=== PATIENT | male | born 1970 | race Caucasian/White ===

== ENCOUNTER 2024-10-20 11:37 | Emergency (ER) | payer SELFPAY ==
[2024-10-20 11:42] VITALS: BP 145/88; PULSE 89; TEMP 36.4; O2SAT 99; BMI 29.0
--- OUTSIDE RECORDS SUMMARY | 2024-10-20 11:43 | XMS_ITS | Encounter Summary ---
Author Organization [facility] Address [address] [facility] [place] [address] Care Team Providers Care Warehouse Manager Name Role Phone Shira Hartman KNIFE GRINDER Primary Care Provider [phone] Encounter Details Date Type Department Care Team (Late st Contact Info) Description 07/16/2005 Outpatient Historical [facility] Narinder Hackett MD [address] [facility] [address] [place] [id number] Social History Tobacco Use Types Packs/Day Years Used Date Smoking Tobacco: Never Assessed Sex and Gender Information Value Date Recorded Sex Assigned at Not on file 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 The lumbar spine is normal in sagittal alignment. The posterior elements appear intact and normal in their relationships. The paraspinal tissues are unremarkable. L1-2: Normal. L2-3: Normal. L3-4: Normal. L4-5: Moderate broad-based bulge of the disc is present. Focal disc protrusion is present to a mild degree in the right subarticular zone, causing moderate lateral recess stenosis. The neural foramina are widely patent. Mild narrowing of the left lateral recess is present. L5-S1: Mild disc protrusion is probably present in the left paracentral zone causing mild impingement upon the left S1 nerve root. Bony structures are unremarkable. IMPRESSION: 1. Diffuse disc bulge and probable mild broad-based disc protrusion on the right at L4-5 narrows the right lateral recess and would be expected to affect the right L5 nerve root. 2. Possible left-sided disc protrusion at L5-S1 appears to mildly displace the left S1 nerve root. This is not well visualized however, and prior to any anticipated surgical procedure, this could be confirmed with MRI or CT myelography if indicated. ekp / Dictated By: Pravin Muñiz M.D. Electronically Signed By: Pravin Muñiz M.D. Date Signed: 07/17/05 Procedure Note Provider, Historical - 03/02/2009 CT OF THE LUMBAR SPINE - 07/16/2005 REASON FOR STUDY: Back pain and left-sided leg pain. The lumbar spine is normal in sagittal alignment. The posterior elementsappear intact and normal in their relationships. The paraspinal tissues are unremarkable. L1-2: Normal. L2-3: Normal. L3-4: Normal. L4-5: Moderate broad-based bulge of the disc is present. Focal disc protrusionis present to a mild degree in the right subarticular zone, causing moderate lateral recess stenosis.The neural foramina are widely patent. Mild narrowing of the left lateral recess is present. L5-S1: Mild disc protrusion is probably present in the left paracentral zonecausing mild impingement upon the left S1 nerve root. Bony structures are unremarkable. IMPRESSION: 1. Diffuse disc bulge and probable mild broad-based disc protrusion onthe right at L4-5 narrows the right lateral recess and would be expected to affect the right L5 nerveroot. 2. Possible left-sided disc protrusion at L5-S1 appears to mildlydisplace the left S1 nerve root. This is not well visualized however, and prior to any anticipated surgicalprocedure, this could be confirmed with MRI or CT myelography if indicated. ekp / Dictated By: Pravin Muñiz M.D. Electronically Signed By: Pravin Muñiz M.D. Date Signed: 07/17/05 us Narinder Hackett MD CT ORDERABLES Final Resul t documented in this encounter Visit Diagnoses Not on filedocumented in this encounter Care Teams Warehouse Manager Relationship Specialty Start Date End Date Shira Hartman FNP [facility] [place] [address] PCP - General NURSE PRACTITIONER 09/20/17 documented as of this encounter
--- OUTSIDE RECORDS SUMMARY | 2024-10-20 11:43 | XMS_ITS | Encounter Summary ---
Author Organization [facility] Address [address] [place] [address] Care Team Providers Care Horticulture Superintendent Name Role Phone Shira Hartman Primary Care Provider [phone] Encounter Details Date Type Department Care Team (Latest Contact Info) Description 07/03/2007 Outpatient Historical [facility] [address] 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
--- OUTSIDE RECORDS SUMMARY | 2024-10-20 11:43 | XMS_ITS | Clinical Summary ---
Author Organization [facility] Address [address] [facility] [address] [place] [address] Phone Care Team Providers Care Systems Test Technician Name Role Phone Shira Hartman Nivia MODEL AND MOLD MAKER Primary Care Provider [phone] Allergies No known active allergies Medications No known medications Social History Tobacco Use Types Packs/Day Years Used Date Smoking Tobacco: Every Day Cigarettes Smokeless Tobacco: Current Chew Alcohol Use Standard Drinks/Week Comments No 0 (1 standard drink = 0.6 oz pur e alcohol) Sex and Gender Information Value Date Recorded Sex Assigned at Not on file 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 Gender Identity Not on file Sexual Orientation Not on file Last Filed Vital Signs Vital Sign Reading Time Taken Comments Blood Pressure 117/78 09/20/2017 3:08 PM CDT Pulse - - Temperature 38.1 C (100.5 F) 09/20/2017 3:08 PM CDT Respiratory Rate 20 09/20/2017 3:08 PM CDT Oxygen Saturation 97% 09/20/2017 3:08 PM CDT Inhaled Oxygen Concentration - - Weight 92.4 kg (203 lb 9.6 oz) 09/20/2017 10:40 AM CDT Height 182.9 cm (6') 09/20/2017 10:40 AM CDT Body Mass Index 27.61 09/20/2017 10:40 AM CDT Plan of Treatment Health Maintenance Due Date Last Done Comments DTAP/TDAP/TD VACCINES (1 - Tdap) 1989 HEPATITIS B VACCINES (1 of 3 - 19+ 3-dose series) 03/15 COLORECTAL SCREENING 2015 Colorectal Cancer Screening 2015 FIT-DNA Q 3 years 2015 FIT/FOBT Q 1 year 2015 Flex Sig/CT Colonography Q 5 years 2015 ZOSTER VACCINE (1 of 2) 2020 INFLUENZA VACCINE (#1) 2024 Care Teams Systems Test Technician Relationship Specialty Start Date End Date Shira Hartman, SMOOTH [address] [place] [address] PCP - General NURSE PRACTITIONER 09/20/17
--- OUTSIDE RECORDS SUMMARY | 2024-10-20 11:43 | XMS_ITS | Encounter Summary ---
Author Organization [facility] Address [address] [place] [address] Care Team Providers Care Outsole Molder Name Role Phone Shira Hartman Primary Care Provider [phone] Encounter Details Date Type Department Care Team (Latest Contact Info) Description 07/13/2005 Outpatient Historical [facility] [place] [facility] Medicine [address] [place] [address] Narinder Hackett MD [address] [facility] [address] [place] [id number] Unspecified Backache (Primary Dx); Sciatica Social History Tobacco Use Types Packs/Day Years Used Date Smoking Tobacco: Never Assessed Sex and Gender Information Value Date Recorded Sex Assigned at Not on file Legal Sex Male 4:23 AM CLIENT DIRECTOR Gender Identity Not on file Sexual Orientation Not on file documented as of this encounter Plan of Treatment Not on file documented as of this encounter Visit Diagnoses Diagnosis Backache, unspecified- Primary Sciatica documented in this encounter Care Teams Outsole Molder Relationship Specialty Start Date End Date Shira Hartman FNP [address] [place], [place] [address] PCP - General NURSE PRACTITIONER 09/20/17 documented as of this encounter
--- NOTE | 2024-10-20 12:40 | CTR_ITS ---
PROCEDURE INFORMATION: Exam: CT Thoracic Spine Without Contrast Exam date and time: 10/20/2024 12:58 PM Age: 54 years old Clinical indication: Injury or trauma; Blunt trauma (contusions or hematomas); Injury details: Tree limb hit PT while in the [place] Lac to left orbit. Positive loss of consciousness unknown for how long. PT drove himself out of the [place] but he does not remember doing this. TECHNIQUE: Imaging protocol: Computed tomography of the thoracic spine without contrast. Radiation optimization: All CT scans at this facility use at least one of these dose optimization techniques: automated exposure control; mA and/or kV adjustment per patient size (includes targeted exams where dose is matched to clinical indication); or iterative reconstruction. COMPARISON: No prior thoracic spine imaging for comparison. RADIATION DOSE METRICS: Total DLP (mGy-cm): 944.71 FINDINGS: Thoracic vertebral body heights are preserved. No acute fracture of the thoracic spine is identified. There is no pathologic widening of disc spaces or interspinous spaces. Very minor chronic degenerative changes are present at multiple levels. Incidental note of granulomatous calcifications at the right hilum and in the right lower lobe CT/CT thoracic spin wo con* [id number] IMPRESSION: No acute thoracic spine fracture detected.
--- NOTE | 2024-10-20 12:40 | CTR_ITS ---
PROCEDURE INFORMATION: Exam: CT Head Without Contrast Exam date and time: 10/20/2024 12:52 PM Age: 54 years old Clinical indication: Injury or trauma; Blunt trauma (contusions or hematomas); Injury details: Tree limb hit PT while in [place] Lac to left orbit. Positive loc unknown for how long. PT drove himself [place] of [place] but he does not remember doing this. ; Additional info: Injury/amnesia TECHNIQUE: Imaging protocol: Computed tomography of the head without contrast. Radiation optimization: All CT scans at this facility use at least one of these dose optimization techniques: automated exposure control; mA and/or kV adjustment per patient size (includes targeted exams where dose is matched to clinical indication); or iterative reconstruction. COMPARISON: CT cervical spin wo con* [id number] 10/20/2024 12:52 PM RADIATION DOSE METRICS: Total DLP (mGy-cm): 212 FINDINGS: Brain: Normal. No hemorrhage. Unremarkable white matter. No mass effect. Cerebral ventricles: No ventriculomegaly. Paranasal sinuses: The right maxillary sinus is hypoplastic and shows partial opacification with a mucous retention cyst. The remaining paranasal sinuses appear normal. Mastoid air cells: Visualized mastoid air cells are well aerated. Bones: Unremarkable. No acute fracture. Soft tissues: Unremarkable. CT/CT head wo con* [id number] IMPRESSION: 1. No sequela of trauma is identified. There is no acute intracranial pathology. 2. 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
--- NOTE | 2024-10-20 12:40 | CTR_ITS ---
PROCEDURE INFORMATION: Exam: CT Cervical Spine Without Contrast Exam date and time: 10/20/2024 12:52 PM Age: 54 years old Clinical indication: Injury or trauma; Blunt trauma; Injury details: Tree limb hit PT while in [place] Lac to left orbit. Positive loc unknown for how long. PT drove himself [place] but he does not remember doing this. TECHNIQUE: Imaging protocol: Computed tomography of the cervical spine without contrast. Radiation optimization: All CT scans at this facility use at least one of these dose optimization techniques: automated exposure control; mA and/or kV adjustment per patient size (includes targeted exams where dose is matched to clinical indication); or iterative reconstruction. COMPARISON: CT head wo con* [id number] 10/20/2024 12:52 PM RADIATION DOSE METRICS: Total DLP (mGy-cm): 212 FINDINGS: Bones: The spine is imaged from upper clivus through T1. AP alignment and curvature are normal.There is no fracture, lytic, or blastic lesion. Discs/Spinal canal/Neural foramina: A C3-C4 left-sided uncovertebral bone spur is demonstrated causing foraminal narrowing and potential left C4 impingement. A disc osteophyte complex is present at C5-C6 along with uncovertebral spurring. There is potential right C6 ventral rootlet impingement at the root exit zone and foramina root entry zone. A C6-C7 disc osteophyte complex is present with uncovertebral spurring causing bilateral moderate foraminal narrowing. No definite root compromise is apparent. The remaining cervical disc spaces show no significant degenerative change. Lungs: Lung apices are normal. Soft tissues: No prevertebral soft tissue swelling or hematoma is present. No cervical soft tissue masses are apparent. Thyroid is normal. CT/CT cervical spin wo con* [id number] IMPRESSION: 1. No sequela of acute trauma is identified. 2. Potentially significant cervical spondylosis as detailed above possibly compromising the left C4, bilateral C6, and possibly bilateral C7 nerve roots. Clinical correlation is needed.
--- NOTE | 2024-10-20 12:42 | ED_ITS ---
HPI - Head Injury 2 General: Chief complaint: Head Injury Stated complaint: Facial lac, hit by tree limb Time Seen by Provider: 10/20/24 12:09 Source: patient and family Mode of arrival: wheelchair Limitations: no limitations History of Present Illness: Patient is a nice 54-year-old male who presents to ED today for medical evaluation. 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 He states he then fell forward and struck his left face on something sustaining a laceration to his left eyebrow. There was no LOC although he states the details of the injury are fuzzy. Friend that was a witness states that he does not remember a lot of the incident. He is not complaining of a headache or neck pain. He does have some upper back pain/abrasions where the tree branch struck him. Complaint: head injury Onset (ago): hour(s) Mechanism of Injury: work related injury Place: work and outdoors Loss of Consciousness: no Location of injury: face and other (back) Severity: moderate Radiation: none Other Injuries: laceration and other (back) Associated symptoms: Reports amnesia; Deny neck pain or syncope Related Data Allergies Allergy/AdvReac Type Severity Reaction Status Date / Time No Known Allergies Allergy Verified 10/20/24 11:50 Review of Systems 2 Eyes: Denies: change in vision, blurry vision, photophobia, eye discharge, floaters or seeing flashes ENMT: Denies: throat pain, odynophagia, ear or mastoid pain, ear discharge, nasal discharge, epistaxis or sinus pain Card: Denies: chest pain, palpitations, lightheadedness, syncope or pre- syncope Resp: Denies: dyspnea or pain on inspiration GI: Denies: abdominal pain : Denies: flank pain or hematuria Musc: Reports: back pain; Denies: neck pain, extremity pain or joint pain Skin/Breast: Reports: other (L eyebrow laceration) Neuro: Denies: headache(s), numbness in extremities, weakness in extremities, sensory changes or dizziness Physical Exam 2 Const: COMMON NORMALS: no acute distress, average body habitus, patient oriented x3, no limitations, healthy appearing, alert and well nourished G ENERAL APPEARANCE: cooperative ORIENTATION/CONSCIOUSNESS: Yes awake, Yes oriented to person, Yes oriented to place and Yes oriented to time HENMT: COMMON NORMALS: normocephalic, atraumatic, TM's normal bilaterally and Normal external nose present HEAD & SCALP: normal to inspection, normocephalic and atraumatic; no Alvarez's sign, no hematoma and no raccoon eyes FACE & SINUS: normal facial exam (apart from L eyebrow laceration) FACE & SINUS IMAGES: 1. laceration; full EOMs NOSE: Normal external nose present TYMPANIC MEMBRANE: TM's normal bilaterally MOUTH: other (no intraoral injuries noted) Eye: COMMON NORMALS: Equal, round and reactive pupils present and EOMs intact bilaterally GENERAL EYE: appearance normal, both eyes and all related structures and normal light reflex PUPIL: Yes Equal, round and reactive pupils present DIRECT OPHTHALMOSCOPY: Yes normal light reflex Neck/C-Spine: COMMON NORMALS: full ROM GENERAL: Yes normal visual inspection CERVICAL SPINE: Yes cervical ROM normal, No pain with cervical ROM, No Cervical spine tenderness, No step off deformity and No Paracervical muscle tenderness Chest: COMMONS NORMALS: normal inspection of the chest and normal palpation of entire chest wall Resp: COMMON NORMALS: normal respiratory effort and clear to auscultation bilaterally AUSCULTATION: clear to auscultation bilaterally Cardio: COMMON NORMALS: regular rate and regular rhythm RATE: regular rate RHYTHM: regular rhythm GI: COMMON NORMALS: Normal to inspection, nondistended, normoactive bowel sounds present, Soft to palpation, non-tender, No hepatosplenomegaly present and no masses INSPECTION: Yes normal to inspection and No abdominal wall ecchymosis AUSCULTATION: Yes normoactive bowel sounds PALPATION: Yes Soft to palpation and Yes No hepatosplenomegaly present Back/Pelvis: COMMON NORMALS: thoraco-lumbar ROM normal and straight leg raise negative bilaterally THORACIC SPINE/UPPER BACK: Yes thoracic ROM normal, Yes pain with ROM, Yes thoracic spinal tenderness, Yes paraspinal muscle tenderness and Yes other soft tissue findings (large abrasion across upper back) LUMBAR SPINE/LOWER BACK: Yes normal to inspection and No lumbar spinal tenderness P JEANIE: Yes buttocks normal SACRUM: no tenderness COCCYX: no tenderness Extremity: COMMON NORMALS: normal to inspection and full ROM GENERAL: Yes normal exam except as noted Neuro: EDI COMA SCALE: document GCS findings [place] coma scale eye opening: Spontaneous Edi coma scale verbal response: Orientated Edi coma scale motor response: Obey commands [place] coma scale total score: 15 COMMON NORMALS: patient oriented x3, CN's II-XII intact bilaterally, moves all extremities, no focal motor deficits, no sensory deficits noted and gait normal SENSORIUM/ORIENTATION: Yes alert, Yes oriented to person, Yes oriented to place and Yes oriented to time SPEECH: speech normal GAIT: Yes Normal gait present Skin: COMMON NORMALS: no rashes or lesions noted GENERAL SKIN EXAM: no rashes or lesions noted TRAUMA: abrasion and laceration Procedures Laceration Laceration 1: Site: face (L eyebrow) Side (If applicable): left Size (cm): 2.0 Description: linear Local Anesthetic: lidocaine 1% and with epi Amount of anesthesia used (mL): 2.0 Pre-repair: wound explored and irrigated extensively Skin layer closed with: nylon Size (cm): 5-0 Number of sutures: 5 Technique: simple, interrupted Subcutaneous layer closed with: vicryl Size: 4-0 Number of sutures: 3 Technique: simple, interrupted Course 2 Vital Signs: Vital signs: Vital Signs Temperature 97.6 F 10/20/24 11:42 Pulse Rate 85 10/20/24 13:18 Blood Pressure 145/88 10/20/24 11:42 Pulse Oximetry 99 10/20/24 13:18 Oxygen Delivery Me thod Room Air 10/20/24 13:18 MDM - Head Injury Medcial Decision Making CT head, cervical spine, thoracic spine obtained and unremarkable. Tetanus will be updated. Facial laceration was copiously irrigated and repaired as documented. Wound care/infection precautions discussed. Medical Records I reviewed the patient's medical records. Lab Data Radiology Impressions Cervical Spine CT 10/20/24 12:40 IMPRESSION: 1. No sequela of acute trauma is identified. 2. Potentially significant cervical spondylosis as detailed above possibly compromising the left C4, bilateral C6, and possibly bilateral C7 nerve roots. Clinical correlation is needed. Head CT 10/20/24 12:40 IMPRESSION: 1. No sequela of trauma is identified. There is no acute intracranial pathology. 2. 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 Thoracic Spine CT 10/20/24 12:40 IMPRESSION: No acute thoracic spine fracture detected. All radiology interpretation(s) finalized by discharge Discharge Plan Discharge Patient Disposition: Home Clinical Impression: Contusion of back wall of thorax Qualifiers: Encounter type: initial encounter Thoracic wall location detail: bilateral Q ualified Code(s): S20.223A - Contusion of bilateral back wall of thorax, initial encounter Laceration of eyebrow, left Qualifiers: Encounter type: initial encounter Qualified Code(s): S01.112A - Laceration without foreign body of left eyelid and periocular area, initial encounter Minor head injury without loss of consciousness Qualifiers: Encounter type: initial encounter Qualified Code(s): S09.90XA - Unspecified injury of head, initial encounter Condition: Stable Discharge Orders: Discharge ED (Routine); Ordered 10/20/24 Ordered By: Quin Grossman Patient Instructions: Laceration (DC), Patient Portal & Neo Instructions Activity Restrictions/Additional Instructions: Keep wound/laceration clean with warm soap and water twice daily. Monitor for signs of infection such as redness, swelling, increased pain, or drainage. Please seek medical re-evaluation if these occur. If you received sutures today these will need to be removed (unless you were told by the provider that they are absorbable). The provider should have discussed with you the length of time until removal-5 to 7 DAYS. Print Language: Slovenian Coding Level of Care Code ED Consumer Safety Inspector for Lulu Saenz
[2024-10-20] MEDS: tetanus-dipt-pertussis 0.5 mL SDV IM (13:15)
[2024-10-20] MEDS: lidocaine-epi 1% 20 mL INJ INJECTION (13:16)
[2024-10-20 13:18] VITALS: PULSE 85; O2SAT 99
[2024-10-20 14:19] VITALS: BP 141/90; PULSE 82; O2SAT 97
== END 2024-10-20 14:20 | disposition home or self-care (01) ==
PROVIDERS: Emergency Provider Physician Assistant
DX: S01.112A Laceration without foreign body of left eyelid and periocular area, initial encounter (principal); S20.223A Contusion of bilateral back wall of thorax, initial encounter; S09.8XXA Other specified injuries of head, initial encounter; W22.8XXA Striking against or struck by other objects, initial encounter
CPT/HCPCS: 12011; 70450; 72125; 72128; 90471; 90715; 99284; J9999